=== PATIENT | male | born 1985 | race American Indian/Alaskan Native ===

== ENCOUNTER 2018-07-09 01:56 | Emergency (ER) | payer SELFPAY ==
[2018-07-09 02:23] VITALS: BP 147/88
[2018-07-09] MEDS ORDERED: HYDROGEN PEROXIDE ONE (04:31)
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
[2018-07-09] MEDS ORDERED: XYLOCAINE 1% MPF 5 mL INFILTRATI ONE (05:11)
[2018-07-09] MEDS ORDERED: BOOSTRIX IM ONE (06:21)
[2018-07-09] MEDS ORDERED: IBUPROFEN PO ONE (06:54)
[2018-07-09] MEDS ORDERED: TRIPLE ANTIBIOTIC TP ONE (07:08)
== END 2018-07-09 07:27 | disposition home or self-care (01) ==
LOC: ED 01:56
DX: S01.121A Laceration with foreign body of right eyelid and periocular area, initial encounter (principal); Z87.891 Personal history of nicotine dependence; V43.52XA Car driver injured in collision with other type car in traffic accident, initial encounter; Y93.89 Activity, other specified; Y92.488 Other paved roadways as the place of occurrence of the external cause; Y99.8 Other external cause status
CPT/HCPCS: 90471; 90715; 99283; A6250